=== PATIENT | female | born 1975 | race Caucasian/White ===

== ENCOUNTER → 2018-06-29 | Outpatient (CLI) | payer BC | LOC: COL.RAD 10:51 | DX: J43.9 Emphysema, unspecified (principal); J98.4 Other disorders of lung; R93.89 Abnormal findings on diagnostic imaging of other specified body structures; R91.8 Other nonspecific abnormal finding of lung field | CPT/HCPCS: Q9967 ==

== ENCOUNTER 2018-08-25 09:42 | Outpatient (CLI) | payer BC ==
[2018-08-25] VITALS (10 sets, daily range): BP systolic 110–124; BP diastolic 71–88; PULSE 59–95
[~2018-08-25] VITALS: Ht 177.8 cm; Wt 86.1 kg
--- NOTE | 2018-08-25 10:40 | NUR ---
PT TAKEN IN TO CT ROOM, PLACED ON TABLE, MOPNITORING EQUIPMENT PLACED ON PT.
--- NOTE | 2018-08-25 10:45 | NUR ---
DE HECTOR HERE AND TIMEOUT DONE.
--- NOTE | 2018-08-25 10:55 | NUR ---
PROCEDURE COMPLETED. MONITORING EQUIPMENT REMOVED. PT TRANSFERS SELF TO CART AND TAKEN TO EU 9. SITE HAS SMALL AMT OF BLEEDING NOTED.
--- NOTE | 2018-08-25 12:38 | NUR ---
vERBAL ORDER RECEIVED FROM Florencio Pedraza TO DISCHARGE HOME.
--- NOTE | 2018-08-25 12:45 | NUR ---
Pt escorted out by this nurse.
== END 2018-08-25 13:15 | disposition home or self-care (01) ==
LOC: COL.RAD 09:42
DX: R91.8 Other nonspecific abnormal finding of lung field (principal)

== ENCOUNTER 2021-06-12 12:21 | Emergency (ER) | payer SELFPAY ==
[~2021-06-12] VITALS: Ht 175.3 cm; Wt 61.4 kg
[2021-06-12 12:34] VITALS: TEMP 98.2
[2021-06-12 12:59] LABS: HEMOGLOBIN 12.3 g/dl (12.5-16.0); MEAN CELL VOLUME 96 fl (80.0-100.0); MEAN CORPUSCULAR HEMOGLOBIN 33 pg (27-31); MEAN CORPUSCULAR HGB CONC 34 g/dl (33.0-37.0); MEAN PLATELET VOLUME 8.7 fl (7.4-10.4); PLATELET COUNT 288 K/mm3 (130-400); RED BLOOD COUNT 3.78 M/mm3 (4.10-5.30)
[2021-06-12 13:04] LABS: HEMATOCRIT 36.1 % (37.0-47.0)
[2021-06-12 13:11] LABS: ALANINE AMINOTRANSFERASE 16 U/L (0-55); ALBUMIN 3.8 gm/dL (3.5-5.0); ALKALINE PHOSPHATASE 57 U/L (40-150); ANION GAP 9 mmol/L (7-16); AST,SGOT 19 U/L (5-34); BILIRUBIN,TOTAL 0.2 mg/dL (0.2-1.2); BLOOD UREA NITROGEN 19 mg/dL (7-19); CALCIUM 8.4 mg/dL (8.4-10.2); CARBON DIOXIDE 23 mmol/L (22-29); CHLORIDE 109 mmol/L (98-107); CREATININE, serum 0.75 mg/dL (0.57-1.11); GLUCOSE 101 mg/dL (70-99); SODIUM 141 mmol/L (136-145); TOTAL PROTEIN 6.5 gm/dL (6.2-8.1)
[2021-06-12] MEDS ORDERED: ASPIRIN 81M81 MG/TA2 PO (13:11)
[2021-06-12 13:41] LABS: BAND 4 % (0-10); EOSINOPHIL 2 % (0-4); LYMPHOCYTE 29 % (20.0-51.0); NEUTROPHILS 56 % (42.0-75.2); PLATELET ESTIMATE NORMAL (NORMAL); TROPONIN-I < 0.010 ng/mL (0.00-0.033)
[2021-06-12] MEDS ORDERED: PREDNISONE10 MG PO (15:21)
[2021-06-12] MEDS ORDERED: AMOXICILLIN 8751 TAB PO (15:21)
[2021-06-12 15:30] VITALS: BP 130/94; PULSE 80
== END 2021-06-12 15:30 | disposition home or self-care (01) ==
LOC: COL.ER 12:21
PROVIDERS: Personal Emergency Response Attendant
DX: J18.9 Pneumonia, unspecified organism (principal); R91.8 Other nonspecific abnormal finding of lung field; F17.210 Nicotine dependence, cigarettes, uncomplicated
CPT/HCPCS: J0696; J2930; J7030; Q9967

== ENCOUNTER 2021-07-12 08:20 | Outpatient (CLI) | payer OTHER ==
[2021-07-12] VITALS (13 sets, daily range): BP systolic 99–125; BP diastolic 56–88; PULSE 49–72; TEMP 97.8
[~2021-07-12] VITALS: Ht 175.3 cm; Wt 67.1 kg
[~2021-07-12 08:20] MED LIST: AMOXICILLIN 8751 TAB PO; ASPIRIN 81M81 MG/TA2 PO; PREDNISONE10 MG PO
[2021-07-12] MEDS ORDERED: [UNRECOGNIZED DRUG - OTHER] PO (09:05)
--- NOTE | 2021-07-12 10:30 | NUR ---
PT ARRIVED FROM RADIOLOGY BY CART. PT IS AWAKE AND ORIENTED. VSS. PT HAS BAND AID TO LEFT ANTERIOR CHEST WITH NO DRAINAGE. WILL CONTINUE TO MONTIOR.
--- NOTE | 2021-07-12 11:07 | NUR ---
SPOKE WITH AND WILL REPEAT CHEST XRAY TWO HOURS POST BIOPSY.
--- NOTE | 2021-07-12 13:02 | NUR ---
DISCHARGE INSTRUCTIONS DISCUSSED WITH PT. ALL QUESTIONS ANSWERED. IV AND MONITORS DCD. PT WALKED OUT FOR DISCHARGE.
== END 2021-07-12 18:00 ==
LOC: COL.RAD 08:20
DX: R91.8 Other nonspecific abnormal finding of lung field (principal)
CPT/HCPCS: J3010